=== PATIENT | male | born 1975 | race Two or more races ===

== ENCOUNTER 2020-06-19 17:36 | Emergency (ER) | payer SELFPAY | END 2020-06-19 19:50 | disposition left against medical advice (07) | LOC: ER 17:36 | DX: R05 Cough (principal); Z53.21 Procedure and treatment not carried out due to patient leaving prior to being seen by health care provider ==

== ENCOUNTER 2020-06-29 02:31 | Emergency (ER) | payer SELFPAY ==
[~2020-06-29] VITALS: Ht 177.8 cm; Wt 81.9 kg
[2020-06-29] MEDS ORDERED: EPINEPHrine HCL 1 MG/10 ML SYRG IV ONE (02:36)
[2020-06-29] MEDS ORDERED: methylPREDNISolone SOD SUCC 125 MG/2 ML VL ONE (03:03)
[2020-06-29] MEDS ORDERED: ALBUTEROL SULF 2.5 MG/0.5ML(0.5%) NEB SOLN NEB ONE (03:15)
[2020-06-29] MEDS ORDERED: levoFLOXacin 750MG 150 ML IV ONE (03:15)
[2020-06-29] MEDS ORDERED: IOHEXOL 350 MG/ML 100ML IJ ONE (03:35)
[2020-06-29 03:46] LABS: Basophils # (auto) 0.1 10 ^3/uL (0-0.2); Eosinophils # (auto) 0 10 ^3/uL (0-0.8); Eosinophils % (auto) 0.1 % (0.0-7.0); Hematocrit 50.8 % (41.0-53.0); Hemoglobin 16.2 g/dL (13.5-17.5); Lymphocytes # (auto) 1.2 10 ^3/uL (0.4-5.4); Lymphocytes % (auto) 10.3 % (10.0-50.0); Mean Corpuscular Hemoglobin 29.5 pg (28.0-32.0); Mean Corpuscular Hgb Conc. 31.9 g/dL (32.0-36.0); Mean Corpuscular Volume 92.6 fL (80.0-100.0); Monocytes # (auto) 0.5 10 ^3/uL (0-1.3); Monocytes % (auto) 4.7 % (0.0-12.0); Neutrophils # (auto) 9.6 10 ^3/uL (1.6-8.6); Neutrophils % (auto) 83.9 % (37.0-80.0); Nucleated Red Blood Cells % 0.2 %; Platelet Count (auto) 153 10^3/uL (140-450); Red Blood Cells 5.48 10^6/uL (4.5-5.90); Red Cell Distribution Width 13.4 % (11.8-14.3); White Blood Cell 11.5 10^3/uL (4.4-10.8)
[2020-06-29 03:57] LABS: Albumin 2.7 g/dL (3.4-5.0); Calcium 7.5 mg/dL (8.5-10.1); Potassium 4.2 mmol/L (3.5-5.1)
[2020-06-29 04:05] LABS: BUN/Creatinine Ratio 9.6; Bilirubin, Total 0.6 mg/dL (0.2-1.0); CRP High Sensitivity 17.1 mg/dL (< 0.3); Total Protein 7.7 g/dL (6.4-8.2)
[2020-06-29 05:27] VITALS: BP 97/44
[2020-06-29] MEDS ORDERED: SUCCINYLCHOLINE CHLORIDE 20 MG/ML 10ML VIAL IV ONE (05:49)
[2020-06-29] MEDS ORDERED: ETOMIDATE (2MG/ML) 20ML VIAL IV ONE (05:49)
[2020-06-29] MEDS ORDERED: ROCURONIUM 10MG/ML 10ML VIAL IV ONE (06:08)
== END 2020-06-29 06:30 | disposition expired ==
LOC: EDBD 02:31 → ER 02:35
DX: J18.9 Pneumonia, unspecified organism (principal); R73.9 Hyperglycemia, unspecified; R79.82 Elevated C-reactive protein (CRP); R77.8 Other specified abnormalities of plasma proteins; Z20.828 Contact with and (suspected) exposure to other viral communicable diseases
CPT/HCPCS: 31500; 36415; 36600; 71045; 80053; 82728; 82805; 83880; 84484; 85025; 86141; 92950; 94640; 94660; 96365; 99291; J0171; J0330; J1956; J2930; Q9967; 93005